=== PATIENT | male | born 2000 | race American Indian/Alaskan Native ===

== ENCOUNTER 2018-02-14 02:56 | Emergency (ER) | payer SELFPAY ==
[2018-02-14 04:47] VITALS: BP 119/70
[2018-02-14] MEDS ORDERED: HYDROGEN PEROXIDE TP ONE (07:16)
--- NOTE | 2018-02-14 07:17 | Emergency Department Report ---
ED General Adult HPI - General Chief complaint: Earache Stated complaint: RIGHT EAR PAIN Time Seen by Provider: 02/14/18 07:11 Source: patient, RN notes reviewed Mode of arrival: Ambulatory Limitations: No Limitations - History of Present Illness Initial comments: This is a 18-year-old male who is not known to this provider previously, denies chronic medical conditions, presents to the ER with a complaint of nontraumatic right-sided ear pain for 1 week. The pain is achy, crampy and sharp. It also involves the right side of his face. He has no dental pain per se, and denies sensitivity to cold and heat. He denies trismus, malocclusion, recent immersion in water, he also denies tinnitus, vertigo, and change in auditory acuity. -: Gradual Location: face Radiation: non-radiation Quality: aching Consistency: intermittent Improves with: none Worsens with: none Associated Symptoms: other. denies: confusion, chest pain, cough, diaphoresis, fever/chills, headaches, loss of appetite, malaise, nausea/vomiting, rash, seizure, shortness of breath, syncope, weakness - Related Data Previous Rx's Medication Instructions Recorded Last Taken Type Acetaminophen [Tylenol Extra 500 mg PO Q4HR PRN #30 tablet 02/14/18 Unknown Rx Strength] Ibuprofen [Motrin] 400 mg PO Q8H PRN #30 tablet 02/14/18 Unknown Rx Allergies Allergy/AdvReac Type Severity Reaction Status Date / Time No Known Allergies Allergy Unverified 02/14/18 05:15 ED Review of Systems ROS: Stated complaint: RIGHT EAR PAIN Other details as noted in HPI Constitutional: denies: fever ENT: ear pain. denies: throat pain, hearing loss, epistaxis, congestion Respiratory: denies: cough Cardiovascular: denies: chest pain Gastrointestinal: denies: abdominal pain Musculoskeletal: denies: back pain Neurological: denies: headache ED Past Medical Hx - Past Medical History Previous Medical History?: No - Surgical History Additional Surgical History: Hernia Repair - Social History Smoking Status: Never Smoker Substance Use Type: None - Medications Home Medications: Home Medications Medication Instructions Recorded Confirmed Last Taken Type Acetaminophen [Tylenol Extra 500 mg PO Q4HR PRN #30 tablet 02/14/18 Unknown Rx Strength] Ibuprofen [Motrin] 400 mg PO Q8H PRN #30 tablet 02/14/18 Unknown Rx ED Physical Exam - General Limitations: No Limitations General appearance: alert, in no apparent distress - Head Head exam: Present: atraumatic, normocephalic - Eye Eye exam: Present: normal appearance, PERRL, EOMI. Absent: nystagmus - ENT ENT exam: Present: normal exam, normal orophraynx, mucous membranes moist, normal external ear exam, other (the left tympanic membrane is within normal limits. There is a cerumen impaction in the right external auditory canal. There is no tenderness over the tragus, or helix. On the right inferior lobule , there is a cosmetic implant noted. There is no obvious adenopathy) - Neck Neck exam: Present: normal inspection, full ROM. Absent: tenderness, meningismus - Respiratory Respiratory exam: Present: normal lung sounds bilaterally. Absent: respiratory distress - Cardiovascular Cardiovascular Exam: Present: normal rhythm, bradycardia, normal heart sounds. Absent: systolic murmur, diastolic murmur, rubs, gallop - GI/Abdominal GI/Abdominal exam: Present: soft. Absent: distended, tenderness, guarding, rebound, rigid, pulsatile mass - Rectal Rectal exam: Present: deferred - Extremities Exam Extremities exam: Present: normal inspection, full ROM. Absent: calf tenderness - Back Exam Back exam: Present: normal inspection, full ROM. Absent: tenderness, CVA tenderness (R), paraspinal tenderness, vertebral tenderness - Neurological Exam Neurological exam: Present: alert, oriented X3, CN II-XII intact, normal gait, other (Extraocular movements intact. Tongue midline. No facial droop. Facial sensation intact to light touch in the V1, V2, V3 distribution bilaterally. 5 and 5 strength in 4 extremities.. Sensation is intact to light touch in 4 extremities.). Absent: motor sensory deficit - Psychiatric Psychiatric exam: Present: normal affect, normal mood - Skin Skin exam: Present: warm, dry, intact, normal color. Absent: rash ED Course Vital Signs 02/14/18 04:39 Temperature 98.2 F Pulse Rate 52 L Respiratory 18 Rate Blood Pressure 119/70 O2 Sat by Pulse 99 Oximetry - Reevaluation(s) Reevaluation #1: 02/14/18 08:01 The right-sided cerumen impaction has been removed. There is mild maceration in the external auditory canal but the right tympanic membrane is not erythematous and has an appropriate light reflex. There is no obvious etiologic agent at this time that requires antibiotic therapy. This can be managed supportively with warm compresses, NSAIDs, and acetaminophen. ED Medical Decision Making - Lab Data Vital Signs 02/14/18 04:39 Temperature 98.2 F Pulse Rate 52 L Respiratory 18 Rate Blood Pressure 119/70 O2 Sat by Pulse 99 Oximetry Critical care attestation.: If time is entered above; I have spent that time in minutes in the direct care of this critically ill patient, excluding procedure time. ED Disposition Clinical Impression: Otalgia Disposition: DC-01 TO HOME OR SELFCARE Is pt being admited?: No Does the pt Need Aspirin: No Condition: Good Instructions: Cerumen Impaction (ED) Additional Instructions: Take the pain medications as needed/directed. Apply warm compresses to the affected area as often as is needed. Avoid cleaning ears with Q-tips. When cleaning ears, make certain to use mineral oil or hydrogen peroxide, both of which can be purchased [id number]. Patient may purchase a miniature dropper, and instill 1-2 drops of each of the aforementioned ( either or is acceptable, whenever the patient prefers) into the ear in the morning to clean. Please follow up with a primary care doctor within the next month. Return to the ER right away with new pain, worsened pain, migration of pain, fevers, chills, lethargy, irritability, projectile vomiting, change in mental status, confusion, inability to tolerate liquid feeds. Referrals: PRIMARY CARE [Primary Care Provider] - 3-5 Days [facility] [Provider Group] - 3-5 Days
[2018-02-14] MEDS ORDERED: COLACE PO ONE (07:42)
[2018-02-14] MEDS ORDERED: COLACE ONE (07:42)
[2018-02-14] MEDS ORDERED: MOTRIN PO ONE (08:05)
== END 2018-02-14 08:15 | disposition home or self-care (01) ==
LOC: ED 02:56
DX: H61.21 Impacted cerumen, right ear (principal)
CPT/HCPCS: 99282